=== PATIENT | male | born 1985 | race Caucasian/White ===

== ENCOUNTER 2018-11-19 10:30 | Emergency (ER) | payer OTHER ==
[2018-11-19] MEDS ORDERED: KETOROLAC 30 MG/ML VIAL IVP ONE (11:07)
[2018-11-19] MEDS ORDERED: 0.9 % SODIUM CHLORIDE 1,000 ML BAG IV ONE (11:07)
[2018-11-19] MEDS ORDERED: ONDANSETRON HCL IV 4 MG/2 ML VIAL IVP ONE (11:07)
[2018-11-19 11:31] LABS: URINE APPEARANCE CLEAR; URINE BILIRUBIN NEGATIVE (NEGATIVE); URINE BLOOD TRACE-I (NEGATIVE); URINE COLOR YELLOW; URINE GLUCOSE (UA) NEGATIVE (NEGATIVE); URINE KETONE NEGATIVE (NEGATIVE); URINE LEUKOCYTE ESTERASE NEGATIVE (NEGATIVE); URINE NITRITE NEGATIVE (NEGATIVE); URINE PROTEIN NEGATIVE (NEGATIVE); URINE UROBILINOGEN 0.2 E.U./dL (0.20 - 1.00)
[2018-11-19 11:44] LABS: URINE BACTERIA NONE SEEN; URINE EPITHELIAL CELLS RARE (FEW); URINE WBC NONE SEEN (0-2/hpf)
[2018-11-19 12:02] LABS: ABSOLUTE NEUTROPHIL COUNT 7.02; BASO % 0.1 % (0-6); EOS % 3.5 % (0-6); GRAN % 66.8 % (47-80); HEMATOCRIT 43.3 % (42.0-52.0); HEMOGLOBIN 14.7 gm/dl (14.0-18.0); LYMPH % 22.5 % (16-45); MEAN CELL VOLUME 90.6 fl (81-97); MEAN CORPUSCULAR HEMOGLOBIN 30.8 pg (27-33); MEAN CORPUSCULAR HGB CONC 33.9 g/dl (32-36); MEAN PLATELET VOLUME 9.5 fl (7.4-10.4); MONO % 7.1 % (0-9); PLATELET COUNT 286 K/uL (130-400); RED BLOOD COUNT 4.78 M/uL (4.40-5.70); RED CELL DISTRIBUTION WIDTH 12.6 % (11.5-14.5); WHITE BLOOD COUNT W/O DIFF 10.5 K/uL (4.2-12.2)
[2018-11-19] MEDS ORDERED: KETOROLAC 30 MG/ML VIAL IM ONE (12:04)
[2018-11-19 12:11] LABS: BLOOD UREA NITROGEN 15 mg/dL (6-20); CREATININE 0.8 mg/dL (0.7-1.2); EST GLOMERULAR FILTRATION RATE > 60 mL/min
[2018-11-19 12:14] LABS: GLUCOSE,RANDOM 100 mg/dL (74-109)
--- NOTE | 2018-11-19 12:31 | Emergency Department Record ---
History of Present Illness - General Chief complaint: Flank Pain Stated complaint: RT FLANK PAIN Time Seen by Provider: 11/19/18 10:46 Source: Patient Mode of Arrival: Ambulatory Limitations: No limitations - History of Present Illness Initial comments: 33 yo male presents with two days of right sided pain. He has some nausea. No fevers. He vomited yesterday. No diarrhea. No rash in that area. No history of prior abdominal surgery. The pain is sharp in nature. The pain was sudden in onset time. MD Complaint: Other (Abdominal pain, right side pain) Onset/Timin -: Days(s) Location: Right flank, Right inguinal region Severity: Moderate Improves with: None Worsens with: None Reports: Nausea/vomiting - Related Data Home Medications Medication Instructions Recorded Confirmed Last Taken No Home Med [NO HOME MEDS] 11/19/18 11/19/18 Unknown Allergies Allergy/AdvReac Type Severity Reaction Status Date / Time Penicillins Allergy PT UNSURE Verified 11/19/18 11:03 OF REACTION Travel Screening - Travel/Exposure Within Last 30 Days Have you traveled within the last 30 days?: No - Travel/Exposure Within Last Year Have you traveled outside the [place] in the last year?: No - Additonal Travel Details Have you been exposed to anyone with a communicable illness?: No - Travel Symptoms Symptom Screening: Vomiting Review of Systems Constitutional: Denies: Chills, Fever, Malaise, Weakness Eyes: Denies: Eye discharge, Photophobia, Vision change ENT: Denies: Congestion, Throat pain Respiratory: Denies: Cough, Dyspnea, Hemoptysis Cardiovascular: Denies: Chest pain, Palpitations, Syncope Endocrine: Denies: Fatigue, Polydipsia, Polyuria Gastrointestinal: Reports: As per HPI, Abdominal pain, Nausea, Vomiting. Denies: Constipation, Diarrhea, Hematochezia Genitourinary: Denies: Dysuria, Frequency, Hematuria Musculoskeletal: Reports: Back pain. Denies: Arthralgia, Myalgia, Other Skin: Denies: Change in color, Rash Neurological: Denies: Headache Psychiatric: Denies: Anxiety Hematological/Lymphatic: Denies: Easy bleeding, Easy bruising Past Medical History - SOCIAL HISTORY Smoking Status: Current every day smoker Alcohol Use: Occasional Drug Use: Heavy Drug Use Detail:: Marijuana - RESPIRATORY Hx Respiratory Disorders: No - CARDIOVASCULAR Hx Cardio Disorders: No - NEURO Hx Neuro Disorders: No - GI Hx GI Disorders: No - Hx Genitourinary Disorders: No - ENDOCRINE Hx Endocrine Disorders: No - MUSCULOSKELETAL Hx Musculoskeletal Disorders: No - PSYCH Hx Psych Problems: No - HEMATOLOGY/ONCOLOGY Hx Hematology/Oncology Disorders: No Family Medical History Any Significant Family History?: No Physical Exam - General General Appearance: Alert, Oriented x3, Cooperative, No acute distress Limitations: No limitations - Head Head exam: Atraumatic, Normal inspection - Eye Eye exam: Normal appearance. negative: Conjunctival injection, Scleral icterus - ENT ENT exam: Normal exam, Mucous membranes moist Ear exam: Normal external inspection Nasal Exam: Normal inspection Mouth exam: Normal external inspection - Neck Neck exam: Normal inspection - Respiratory Respiratory exam: Normal lung sounds bilaterally. negative: Respiratory distress - Cardiovascular Cardiovascular Exam: Regular rate, Normal rhythm, Normal heart sounds - GI/Abdominal GI/Abdominal exam: Soft, Tenderness. negative: Distended, Guarding - Rectal Rectal exam: Deferred - exam: Deferred - Extremities Extremities exam: Normal inspection. negative: Pedal edema, Tenderness - Back Back exam: Reports: CVA tenderness (R), Tenderness. Denies: CVA tenderness (L), Full ROM, Paraspinal tenderness, Rash noted, Vertebral tenderness - Neurological Neurological exam: Alert, Oriented X3 - Psychiatric Psychiatric exam: Normal affect, Normal mood - Skin Skin exam: Dry, Intact, Normal color, Warm Course Vital Signs 11/19/18 10:54 Temperature 98.1 F Pulse Rate 62 Respiratory 16 Rate Blood Pressure 121/75 Pulse Ox 98 - Reevaluation(s) Reevaluation #1: 11/19/18 13:06 The labs results were reviewed There are no acute significant abnormalities of the CBC There are no acute significant abnormalities of the BMP The UA was reviewed. Trace Blood noted The CT was reviewed. Right 1mm intra renal stone. Otherwise normal We discussed the results of the tests and questions were answered at the time of discharge. No acute findings now but with the blood he may have passed a stone earlier. His pain is well controlled The patient is doing well and is comfortable with DC. DC vitals were reviewed. We discussed at length reasons to immediately return to the ED as well as close follow up. Medical Decision Making - Lab Data Result diagrams: 11/19/18 12:01 11/19/18 12:01 Lab Results 08/11/19/18 11/19/18 Range/Units 11:25 12:01 12:01 WBC 10.5 (4.2-12.2) K/uL RBC 4.78 (4.40-5.70) M/uL Hgb 14.7 (14.0-18.0) gm/dl Hct 43.3 (42.0-52.0) % MCV 90.6 (81-97) fl MCH 30.8 (27-33) pg MCHC 33.9 (32-36) g/dl RDW 12.6 (11.5-14.5) % Plt Count 286 (130-400) K/uL MPV 9.5 (7.4-10.4) fl Gran % 66.8 (47-80) % Lymphocytes % 22.5 (16-45) % Monocytes % 7.1 (0-9) % Eosinophils % 3.5 (0-6) % Basophils % 0.1 (0-6) % Absolute Neutrophils 7.02 Sodium 140 (136-145) mmol/L Potassium 4.1 (3.4-4.5) mmol/L Chloride 105 (98-107) mmol/L Carbon Dioxide 24.0 (22-29) mmol/L Anion Gap 11.0 (7-16) BUN 15 (6-20) mg/dL Creatinine 0.8 (0.7-1.2) mg/dL Estimated GFR > 60 mL/min Random Glucose 100 (74-109) mg/dL Calcium 9.8 (8.6-10.0) mg/dL Urine Color Yellow Urine Appearance Clear Urine pH 5.5 (5.0-8.0) Ur Specific [place] 1.025 (1.002-1.030) Urine Protein Negative (NEGATIVE) Urine Glucose (UA) Negative (NEGATIVE) Urine Ketones Negative (NEGATIVE) Urine Blood Trace-i (NEGATIVE) Urine Nitrite Negative (NEGATIVE) Urine Bilirubin Negative (NEGATIVE) Urine Urobilinogen 0.2 (0.20 - 1.00) E.U./dL Ur Leukocyte Esterase Negative (NEGATIVE) Urine RBC 3 - 6 (NONE SEEN) Urine WBC None seen (0-2/hpf) Ur Epithelial Cells Rare (FEW) Urine Bacteria None seen Disposition Disposition: Discharge Clinical Impression: Right flank pain Disposition: Home, Self-Care Condition: (1) Good Instructions: Renal Colic (ED), Flank Pain (ED) Additional Instructions: Call your doctor for the next available follow up appointment Review this ER visit and the tests performed with your family doctor Return to the ER for a recheck if worse, any new concerns or questions Stay hydrated You may take Motrin as directed if the pain returns Forms: Patient Portal Access Time of Disposition: 13:05 Quality - Quality Measures Quality Measures: N/A - Blood Pressure Screening Does Patient Have Any of the Following: No Blood Pressure Classification: Pre-Hypertensive BP Reading Systolic Measurement: 121 Diastolic Measurement: 75 Screening for High Blood Pressure: < Pre-Hypertensive BP, F/U Documented > [G8950] Pre-Hypertensive Follow-up Interventions: Referral to alternative/primary care provider.
--- NOTE | 2018-11-20 22:56 | CT SCAN REPORT ---
EXAM: CT SCAN ABDOMEN/PELVIS WO CONTRAST HISTORY: RIGHT FLANK PAIN AND RIGHT LOWER QUADRANT PAIN FOR THE PAST 24 HOURS. TECHNIQUE: Standard CT imaging of the abdomen and pelvis was performed without contrast. Additional coronal and sagittal reformatted images were also performed. COMPARISON: None. FINDINGS: The lung bases are clear. The liver, gallbladder, biliary tree, pancreas, spleen, and adrenal glands are normal. There is a 1 mm nonobstructing stone within the mid to inferior pole of the right kidney. There is no obstructing calculus or hydronephrosis. The kidneys and ureters are otherwise unremarkable. The aorta is normal in caliber. There is no retroperitoneal lymphadenopathy. The large and small bowel loops including the appendix are normal. There are no focal inflammatory changes. There is no pneumoperitoneum or ascites. The urinary bladder and prostate gland are normal. The abdominal wall appears normal. There is no abnormality within the region of pain within the right mid abdomen. The bones appear intact. IMPRESSION: 1. NO ACUTE INTRAABDOMINAL PATHOLOGY. THE APPENDIX IS NORMAL. 2. A 1 MM NONOBSTRUCTING STONE WITHIN THE RIGHT KIDNEY. JOB NUMBER: [id number] [facility]
== END 2018-11-19 13:14 | disposition home or self-care (01) ==
LOC: ER 10:30
DX: N20.0 Calculus of kidney (principal); R11.2 Nausea with vomiting, unspecified; R10.13 Epigastric pain; F17.210 Nicotine dependence, cigarettes, uncomplicated
CPT/HCPCS: 99284 ×2; 96372; 85025; 80048; 81001; 74176; J1885